=== PATIENT | female | born 1985 | race Caucasian/White ===

== ENCOUNTER 2018-08-10 11:19 | Emergency (ER) | payer OTHER ==
[~2018-08-10] VITALS: Ht 160 cm; Wt 71.7 kg
[2018-08-10 11:28] VITALS: BP 113/74
--- NOTE | 2018-08-10 11:30 | NUR ---
Note undone in EDM - 08/10/18 at 1203 by MED BIB SELF. AAOX4. C/O ABD PAIN X 2 WEEKS, 4-6 WEEKS , [id number], + NAUSEA, -V/D. PER PT SHE WENT TO URGENT CARE ON 07/29/18 AND WAS DIAGNOSED WITH UTI. ANTIBIOTIC PRESCRIPTION OF CEPHALEXIN 500 MG. PT STATES SHE STOPPED ANTIBIOTIC THERAPY DUE TO VAGINAL DISCHARGE. PT TEACHING OF THE IMPORTANCE OF TAKING THE WHOLE COURSE OF ANTIBIOTIC THERAPY. PT VERBALIZED UNDERSTANDING. PT STATES ABDOMINAL LATERAL PAIN OF 7/10, CONSTANT. AFEBRILE. NO SOB NOTED. HOB UP. BED SIDE RAILS UP X1. ON LOW BED POSITION, LOCKED. ER MADE AWARE OF PT STATUS.
--- NOTE | 2018-08-10 11:30 | NUR ---
BIB SELF. AAOX4. C/O ABD PAIN X 2 WEEKS, 4-6 WEEKS , [id number], + NAUSEA, -V/D. PER PT SHE WENT TO URGENT CARE ON 07/29/18 AND WAS DIAGNOSED WITH UTI. ANTIBIOTIC PRESCRIPTION OF CEPHALEXIN 500 MG. PT STATES SHE STOPPED ANTIBIOTIC THERAPY DUE TO VAGINAL DISCHARGE. PT TEACHING OF THE IMPORTANCE OF TAKING THE WHOLE COURSE OF ANTIBIOTIC THERAPY. PT VERBALIZED UNDERSTANDING. PT STATES VAGINAL ITCHING AND DISCHARGE. PT STATES NO BURNING NO FOUL ODOR UPON URINATION. PT STATES ABDOMINAL LATERAL PAIN OF 7/10, CONSTANT. AFEBRILE. NO SOB NOTED. HOB UP. BED SIDE RAILS UP X1. ON LOW BED POSITION, LOCKED. ER MADE AWARE OF PT STATUS.
--- NOTE | 2018-08-10 12:18 | NUR ---
Dr. Trevino evaluating patient at bedside.
[2018-08-10 12:40] LABS: BASOPHILS % (AUTO) 0.3 % (0.0-2.0); EOSINOPHILS % (AUTO) 0.4 % (0.0-4.0); HEMATOCRIT 36.2 % (36-48); LYMPHOCYTES # (AUTO) 1.9 K/uL (2.5-16.5); LYMPHOCYTES % (AUTO) 28.2 % (20.5-51.1); MEAN CORPUSCULAR HEMOGLOBIN 28 pg (27-31); MEAN CORPUSCULAR HGB CONC 33 g/dL (33-37); MEAN CORPUSCULAR VOLUME 85.2 fL (80-94); MONOCYTES # (AUTO) 0.4 K/uL (0.8-1.0); MONOCYTES % (AUTO) 6.2 % (1.7-9.3); NEUTROPHILS # (AUTO) 4.3 K/uL (1.8-7.7); NEUTROPHILS % (AUTO) 64.9 % (42.2-75.2); PLATELET COUNT (AUTO) 214 K/uL (140-450); RED BLOOD CELL COUNT(AUTO) 4.25 MIL/uL (4.20-5.40); RED CELL DISTRIBUTION WIDTH 13.2 % (11.6-13.7); WHITE BLOOD COUNT (AUTO) 6.6 K/uL (4.8-10.8)
[2018-08-10 12:42] LABS: APPEARANCE,URINE CLEAR (CLEAR); BILIRUBIN,URINE NEGATIVE (NEGATIVE); BLOOD, URINE NEGATIVE (NEGATIVE); COLOR,URINE YELLOW (YELLOW); LEUKOCYTE ESTERASE ,URINE NEGATIVE (NEGATIVE); NITRITE, URINE NEGATIVE (NEGATIVE); UGLUCOSE NEGATIVE (NEGATIVE)
--- NOTE | 2018-08-10 16:36 | NUR ---
Dr. Trevino evaluating patient at bedside.
--- NOTE | 2018-08-10 16:45 | NUR ---
PELVIC EXAM PERFORMED BY DR DANGELO WITH ANTIONETTE JOHNSON RN. SWAB COLLECTED BY DR DANGELO AND SENT TO LAB
[2018-08-10 17:05] VITALS: BP 110/62
--- NOTE | 2018-08-10 17:05 | NUR ---
NO WOUND TO BE ASSESSED.
--- NOTE | 2018-08-10 17:05 | NUR ---
Patient discharged with v/s stable. Written and verbal after care instructions given and explained. Patient verbalized understanding. Ambulatory with steady gait. All questions addressed prior to discharge. Advised to follow up with PMD.
== END 2018-08-10 17:05 | disposition home or self-care (01) ==
LOC: MED 11:19
DX: O26.891 Other specified pregnancy related conditions, first trimester (principal); R10.30 Lower abdominal pain, unspecified; R30.0 Dysuria; Z3A.01 Less than 8 weeks gestation of pregnancy
CPT/HCPCS: 36415; 76817; 81003; 81025; 84702; 85025; 86900; 86901; 87070; 87210; 99284; Q0092